=== PATIENT | female | born 1965 | race Caucasian/White ===

== ENCOUNTER 2020-05-15 18:00 | Emergency (ER) | payer MEDICARE, SELFPAY ==
[2020-05-15 18:01] VITALS: BP 135/82; PULSE 89; RESP 18; TEMP 36.5; O2SAT 99; BMI 25.7
--- NOTE | 2020-05-15 18:17 | EKG12_ITS ---
Test Reason : RIGHT ARM PAIN Blood Pressure : / mmHG Vent. Rate : 077 BPM Atrial Rate : 077 BPM P-R Int : 116 ms QRS Dur : 090 ms QT Int : 388 ms P-R-T Axes : 056 065 050 degrees QTc Int : 439 ms Normal sinus rhythm Normal ECG Confirmed by NOEL LARA, GOSIA ([id number]), electronic news gathering editor PIPPA MURRIETA ([id number]) on 05/21/2020 1:15:21 PM Referred By: NICOLE Confirmed By:JEFFREY COHEN MD
--- NOTE | 2020-05-15 18:31 | ED.VIS.GEN ---
History of Present Illness Chief Complaint: Other, Pain/Inj Informant: Patient Onset: Days Context: Gradual Onset Timing: Intermittent Current Severity: Mild Maximum Severity: Mild Narrative: The patient is a 55-year-old female that presents to the emergency department with right arm pain. The patient states that she has a cervical spine injury from 2006. She states my disks are all messed up. She states from time to time, she will get tingling in her arms. She states that is not atypical. Over the past few days, she is had a burning down her right posterior arm into her hand. She states if she moves around, it seems to respond. She has not taken anything for her pain. She states that she does not believe in medications. She denies chest pain. She denies fevers or chills. She denies shortness of breath. Prior similar symptoms: Yes Recent Illness/Hospitalization: No Past Medical History - Allergies and Home Meds Allergies/Adverse Reactions: Allergies acetaminophen [From Tylenol] Adverse Reaction (Verified 05/15/20 18:08) Other lidocaine Adverse Reaction (Verified 05/15/20 18:08) PT UNABLE TO RESPOND-NEEDS F/U naproxen Adverse Reaction (Verified 05/15/20 18:08) Other Primary Care Physician: Cesar Lozano MD [Primary Care Provider] - Prior records reviewed: Yes Past Medical History: - - Prior cervical spine injury Surgical History: noncontributory Smoking Status: Current every day smoker Review of Systems General: Denies: Chills, Fever, Sweats Eyes: Denies: Visual changes - bilaterally, Diplopia ENT: Denies: Rhinorrhea, Sore throat Cardiovascular: Denies: Chest pain, Palpitations Respiratory: Denies: Dyspnea, Cough, Dyspnea on exertion Gastrointestinal: Denies: Abdominal pain, Nausea, Vomiting, Diarrhea, Melena, Hematochezia Genitourinary: Denies: Dysuria, Hematuria, Frequency Musculoskeletal: Reports: Neck pain. Denies: Back pain, Extremity Pain Skin: Denies: Rash, Wounds Neurological: Denies: Headache, Weakness, Numbness Physical Exam Vital Signs/Narrative: Vital Signs Temp Pulse Resp BP Pulse Ox 05/15/20 18:01 97.7 F L 89 18 135/82 H 99 Inital Vital Signs reviewed: Yes General: Well nourished, Well developed, No Acute Distress Head: Normocephalic, Atraumatic Eyes: Perrl, EOMI ENT: Moist mucous membranes, No rhinorrhea Neck: Supple, Nontender Cardiovascular: Regular rate, Regular rhythm, No murmurs Respiratory: No distress, CTA bilaterally, Chest nontender Abdomen: Soft, Nontender, Nondistended, Normal bowel sounds Back: Nontender, Normal Inspection Extremities: Nontender, No edema Skin: Normal color, No rash Neurological: Alert, Oriented x3, Cranial nerves II-XII grossly intact, Normal Strength, Normal Sensation Psychological: Normal affect, Normal Mood Diagnostic/Tx/Re-eval - Medical Decision Making The patient has no weakness of her upper arms. There is no weakness of the intrinsics. She is able to flex and extend throughout all joints. Her reflexes are normal. She has no reproducible neck pain. I did offer the patient pain control which she refused. I asked the patient what made her concerned and she thought that this could be cardiac. Her symptoms are reproducible through the arm. I did obtain an EKG which was normal sinus rhythm. She has had no other chest pain. I do not feel this represents acute coronary syndrome. My suspicion is this is likely a cervical radiculopathy. The patient is comfortable with outpatient follow-up. She will be discharged home. Impression 1. Cervical radiculopathy ED Disposition - Plan for ED Patient: Instructions: ED CERVICAL RADICULOPATHY Referrals: Cesar Lozano MD [Primary Care Provider] -
== END 2020-05-15 19:06 | disposition home or self-care (01) ==
PROVIDERS: Emergency Provider Emergency Medicine; PCP Family Medicine
DX: M54.12 Radiculopathy, cervical region (principal); F17.200 Nicotine dependence, unspecified, uncomplicated
CPT/HCPCS: 93005; 99284

== ENCOUNTER 2022-01-11 15:40 | Emergency (ER) | payer MEDICARE, SELFPAY ==
[2022-01-11 15:41] VITALS: BP 136/87; PULSE 70; RESP 18; TEMP 37.4; O2SAT 99; BMI 30.1
--- NOTE | 2022-01-11 15:51 | EDS_ITS ---
HPI History of Present Illness Chief Complaint: Laceration Detail of Chief Complaint: Laceration to right thumb that occurred prior to arrival in the emergency d Informant: patient Onset/Context/Timing Onset: Today Narrative Narrative: Patient presents to the emergency department with a laceration to her right thumb that occurred prior to arrival. Patient states that she had a metal object in her hand and she threw it and it lacerated her hand. Patient is right-hand dominant. Patient unsure of her last tetanus shot. PFSH PFSH Home Medications No Known/Unobtainable [No Known Home Medications] 07/01/14 [History Last Taken Unknown] Allergy/AdvReac Type Severity Reaction Status Date / Time acetaminophen [From Tylenol] AdvReac Other Verified 05/15/20 18:08 lidocaine AdvReac PT UNABLE Verified 01/11/22 15:43 TO RESPOND-NEEDS F/U naproxen AdvReac Other Verified 05/15/20 18:08 Social History Smoking Status: Current every day smoker tobacco type: cigarettes ROS ROS ED Constitutional Constitutional ED: Reports systems reviewed and no addt'l complaints, except as documented; Denies body ache(s), change in weight or chills Eyes Eyes: Denies acute decrease in peripheral vision, change in vision, double vision or loss of vision ENT ENT ED: Reports none; Denies ear pain, lip swelling, loss taste/smell, neck pain, otalgia or sore throat Cardiovascular Cardiovascular: Reports none; Denies abdominal pain, chest pain with activity, leg edema, lightheadedness, palpitations, rapid heart rate or syncope Respiratory/Chest Respiratory/Chest: Reports none; Denies change in mental status, dry cough, dyspnea, hemoptysis, shortness of breath at rest or shortness of breath with exertion Gastrointestinal Gastrointestinal: Reports none; Denies abdominal pain, change in stool character, diarrhea, hematemesis, hematochezia, melena, rectal bleeding or vomiting Genitourinary Genitourinary ED: Reports none; Denies abdominal discomfort, anuria, dysuria, genital pain or polyuria Musculoskeletal Musculoskeletal: Reports none; Denies arthralgias, back pain, difficulty walking, extremity pain, muscle weakness or myalgias Integumentary Reports none and other Details: Laceration right thumb ; Denies abscess or rash Neurologic Neurologic: Reports none; Denies abnormal gait, confusion, focal weakness, frequent falls, headache(s), loss of vision, numbness, paresthesias, radicular pain, vertigo or weakness Psychiatric Psychiatric: Reports systems reviewed and no addt'l complaints, except as documented and none; Denies behavioral changes, confusion, difficulty concentrating, hallucinations, suicidal ideation, tactile hallucinations or visual hallucinations Endocrine Endocrinology: Denies none, cold intolerance, excessive sweating, fatigue or heat intolerance Hematologic/Lymphatic Hematologic/Lymphatic: Reports none; Denies anemia, easy bleeding or easy bruising Allergic/Immunologic Allergic/Immunologic ED: Denies as per HPI, none, lip swelling, mouth swelling, throat swelling, tongue swelling or hives EXAM Physical Exam Const Vital Signs: 01/11/22 15:41 Temperature 99.3 F H Temperature Source Temporal Pulse Rate 70 Respiratory Rate 18 Blood Pressure 136/87 H Blood Pressure Mean 103 Pulse Ox 99 Oxygen Delivery Method Room Air Positive well nourished and well developed General Appearance ED: well developed and NAD HEENT Reports TM's clear and moist mucous membranes normocephalic and atraumatic; Negative for trauma or tenderness Tympanic Membrane ED: Yes TM's clear Eyes PERRL and EOMs intact bilaterally General Eye ED: Negative for pale conjunctiva or scleral icterus Neck no lymphadenopathy, supple and no JVD General: Negative for tenderness Chest Wall inspection of chest normal and palpation of chest normal Chest: Negative for tenderness Resp normal respiratory effort and clear to auscultation bilaterally Effort and Inspection: Negative for respiratory distress or pain with movement Auscultation: Negative for rhonchi, wheezes or diminished lung sounds Cardio regular rate, regular rhythm, S1 normal heart sound, S2 normal heart sound and no murmurs Peripheral Pulses: pulses 2+ throughout GI normal to inspection, nondistended, normoactive bowel sounds, soft to palpation, non-tender, non-distended and no masses Back/Spine no CVA tenderness and no thoracic nor lumbar tenderness Extremity Extremity Narrative: Patient has a 4 cm flap-like laceration over the volar aspect of the proximal phalanx extending distally over the area of the IP joint. Patient has normal range of motion flexion extension of the thumb. She is neurovascular intact. After locally anesthetizing the wound I was able to further inspect and I do not appreciate any obvious tendon laceration. Patient has normal range of motion and strength against resistance. General Extremety ED: Negative for edema General Extremity: Negative for edema Neuro oriented x3, CN's II-XII intact bilaterally, no sensory deficits noted and gait normal Sensorium / Orientation: awake, alert, oriented to person, oriented to place and oriented to time Motor Exam: strength 5/5 throughout and strength abnormal Psych mental status grossly normal Skin no rashes or lesions noted and no wounds Procedures Lacerations Thumb laceration: Length: 1.57 in Depth: Sub Q Shape: Flap Prep: Osmani-Patricia Laceration repair: Irrigated, Lidocaine and Local Irrigated (ml): 50 Number of Sutures/[place]: 8 Suture Information: Ethilon, Simple and 5-0 Discharge Plan Triage Chief Complaint: Laceration ED Provider: Avinash Barney Dx/Rx/DC Orders Clinical Impression: Laceration of right thumb Instructions: ED Laceration, Hand: All Closures Prescriptions: No Action No Known Home Medications RF: 0 Primary Care Provider: Shoaib Zuniga Referrals: Shoaib Zuniga MD [Primary Care Provider] - 10 Day for suture removal Disposition Disposition: Home, Self Care
[2022-01-11] MEDS: Lidocaine 1% (20 ml mdv) 20 ML Vial 6 ML INFILT (16:10)
[2022-01-11] MEDS: Diphth,Pertuss(Acell),Tet Vac 0.5 ML Vial IM (16:20)
== END 2022-01-11 16:37 | disposition home or self-care (01) ==
PROVIDERS: Emergency Provider Emergency Medicine; PCP Family Medicine; Visit Provider Emergency Medicine
DX: S61.011A Laceration without foreign body of right thumb without damage to nail, initial encounter (principal); F17.210 Nicotine dependence, cigarettes, uncomplicated; W26.8XXA Contact with other sharp object(s), not elsewhere classified, initial encounter; Y93.9 Activity, unspecified; Y99.9 Unspecified external cause status; Y92.9 Unspecified place or not applicable; Z23 Encounter for immunization
CPT/HCPCS: 12002; 90471; 90715; 99283

== ENCOUNTER 2022-06-19 23:32 | Emergency (ER) | payer MEDICARE, SELFPAY ==
[2022-06-19 23:33] VITALS: BP 144/82; PULSE 87; RESP 18; TEMP 36.8; O2SAT 98; BMI 28.3
[2022-06-20 00:01] VITALS: BP 144/82; PULSE 87; RESP 18; O2SAT 98
--- NOTE | 2022-06-20 00:02 | EDS_ITS ---
HPI History of Present Illness Chief Complaint: Laceration Narrative Narrative: Patient is a 57-year-old female who presents to the ER stating about 1 hour ago she was slicing carrots when she cut her right thumb. She states she held pressure for approximately 30 minutes to an hour and the area continued to bleed. She states has been no numbness tingling or weakness and she reports her tetanus was updated a few months ago after she cut her right hand as well. She states that as she cannot get the bleeding under control she presents for evaluation. She denies any history of bleeding disorder or blood thinner use [facility] Home Medications No Known/Unobtainable [No Known Home Medications] 07/01/14 [History Last Taken Unknown] Allergy/AdvReac Type Severity Reaction Status Date / Time acetaminophen [From Tylenol] AdvReac Other Verified 06/19/22 23:34 lidocaine AdvReac PT UNABLE Verified 06/19/22 23:34 TO RESPOND-NEEDS F/U naproxen AdvReac Other Verified 06/19/22 23:34 Social History Smoking Status: Current every day smoker tobacco type: cigarettes ROS ROS ED Constitutional Constitutional ED: Denies chills or fever(s) ENT ENT ED: Denies sore throat Cardiovascular Cardiovascular: Denies chest pain Respiratory/Chest Respiratory/Chest: Denies cough or dyspnea Gastrointestinal Gastrointestinal: Denies abdominal pain, diarrhea, nausea or vomiting Genitourinary Genitourinary ED: Denies dysuria Musculoskeletal Musculoskeletal: Reports other Details: Positive right thumb pain Integumentary Reports other Details: Positive laceration Neurologic Neurologic: Denies headache(s) or paresthesias Hematologic/Lymphatic Hematologic/Lymphatic: Denies easy bleeding or easy bruising EXAM Physical Exam Const Vital Signs: 06/19/22 23:33 06/20/22 00:01 Temperature 98.2 F Temperature Source Temporal Pulse Rate 87 87 Respiratory Rate 18 18 Blood Pressure 144/82 H 144/82 H Blood Pressure Mean 102 Pulse Ox 98 98 Oxygen Delivery Method Room Air Positive well nourished and well developed General Appearance ED: well developed Eyes PERRL and EOMs intact bilaterally Neck supple Resp normal respiratory effort and clear to auscultation bilaterally Cardio regular rate and regular rhythm Extremity Extremity Narrative: Right upper extremity is neurovascularly intact; AIN/PIN are intact and normal. Patient has full active range of motion. Along the radial aspect of the distal right thumb next to the nailbed there is a 1 cm avulsion of skin tissue with minimal ooze of blood and no foreign body. No ligamentous or tendon injury. No involvement of the nailbed. Remainder the exam is normal Neuro oriented x3, CN's II-XII intact bilaterally and no sensory deficits noted Sensorium / Orientation: alert Psych mental status grossly normal Skin Skin Narrative: Skin avulsion to the right thumb as documented above MDM MDM MDM Narrative Medical decision making narrative: Patient presented to the ER with an avulsion to the skin of the right thumb. Her tetanus was updated a few months ago so therefore there is no need to provide this. There is no way to close the wound as she completely avulsed the skin tissue. As there was minimal ooze of blood from this I elected to put Gelfoam over top the area/wound. This was able to provide cauterization and then the wound was wrapped with a pressure dressing. At this time patient is low risk for infection she does not have signs of ligamentous or tendon injury and therefore there is no need for further work-up and patient is otherwise safe for discharge Discharge Plan Triage Chief Complaint: Laceration ED Provider: Misael Chase Dx/Rx/DC Orders Clinical Impression: Avulsion of skin of right thumb without complication Instructions: ED Skin Avulsion Prescriptions: No Action No Known Home Medications Primary Care Provider: Shoaib Zuniga Referrals: Shoaib Zuniga MD [Primary Care Provider] - Activity Restrictions/Additional Instructions: Please wear the Gelfoam with compression dressing for 12 hours. After this unwrapped the thumb and then shower wash her hands to have the Gelfoam dissolve off. It should leave a black to dark discoloration over top the wound and there should be no further bleeding. The wound will then heal as it would normally. Please return to the ER should you have any further concerns Disposition Disposition: Home, Self Care Discharge Date/Time: 06/20/22 00:14
== END 2022-06-20 00:14 | disposition home or self-care (01) ==
PROVIDERS: Emergency Provider Emergency Medicine; PCP Family Medicine; Visit Provider Emergency Medicine
DX: S61.001A Unspecified open wound of right thumb without damage to nail, initial encounter (principal); F17.210 Nicotine dependence, cigarettes, uncomplicated; W26.0XXA Contact with knife, initial encounter
CPT/HCPCS: 12001; 99282